=== PATIENT | female | born 1970 | race Caucasian/White ===

== ENCOUNTER 2019-12-05 16:23 | Emergency (ER) | payer BC, OTHER | END 2019-12-05 16:49 | disposition home or self-care (01) | LOC: ERS 16:23 | DX: Z03.818 Encounter for observation for suspected exposure to other biological agents ruled out (principal); R05 Cough; E10.9 Type 1 diabetes mellitus without complications; E78.5 Hyperlipidemia, unspecified; I10 Essential (primary) hypertension; F41.9 Anxiety disorder, unspecified; F32.9 Major depressive disorder, single episode, unspecified; Z79.899 Other long term (current) drug therapy | CPT/HCPCS: 99283 ==